=== PATIENT | male | born 1960 | race Caucasian/White ===

== ENCOUNTER 2019-09-20 13:26 | Emergency (ER) | payer OTHER ==
[~2019-09-20] VITALS: Ht 177.8 cm; Wt 77.1 kg
[~2019-09-20 13:26] MED LIST: ALBU90OI INH; BENZ100A PO; CRUTCH2 USE; LEVFLO500 PO; Norco 5-325 Ta1 EACH PO; OXYACE10 PO; Prednisone20 MG PO; RXOXYACE PO; SPACE CHAMBER1 EACH MC
[2019-09-20] MEDS ORDERED: IBUP800 PO (14:14)
== END 2019-09-20 14:28 | disposition home or self-care (01) ==
LOC: ER 13:26
DX: K40.90 Unilateral inguinal hernia, without obstruction or gangrene, not specified as recurrent (principal); F17.200 Nicotine dependence, unspecified, uncomplicated
CPT/HCPCS: 99283

== ENCOUNTER 2020-06-09 12:43 | Inpatient (IN) | payer OTHER ==
[~2020-06-09] VITALS: Ht 170.2 cm; Wt 69.5 kg
[~2020-06-09 12:43] MED LIST changes: +IBUP800 PO
[2020-06-09 13:39] LABS: BASOPHILS ABSOLUTE AUTO 0.11 K/mm3 (0.00-0.23); BASOPHILS PERCENT AUTO 1 % (0-2); EOSINOPHILS ABSOLUTE AUTO 0.25 K/mm3 (0.00-0.68); EOSINOPHILS PERCENT AUTO 3 % (0-6); Hematocrit 45.9 % (37.0-53.0); Hemoglobin 15.4 g/dL (13.5-17.5); IMMATURE GRAN ABSOLUTE AUTO 0.02 K/mm3 (0.00-0.10); IMMATURE GRAN PERCENT AUTO 0 % (0-1); LYMPHOCYTES ABSOLUTE AUTO 1.57 K/mm3 (0.84-5.20); LYMPHOCYTES PERCENT AUTO 20 % (21-46); MONOCYTES PERCENT AUTO 11 % (4-13); Mean Corpuscular HGB 30.5 pg (26.0-34.0); Mean Corpuscular HGB Conc 33.6 g/dL (31.5-36.5); Mean Corpuscular Volume 91 fL (80-100); Mean Platelet Volume 8.7 fL (9.1-12.4); NEUTROPHILS ABSOLUTE AUTO 5.09 K/mm3 (1.96-9.15); NEUTROPHILS PERCENT AUTO 64 % (41-73); Platelet Count 219 K/mm3 (150-400); RDW Coefficient Variation 12.4 % (11.7-14.2); Red Blood Cell Count 5.05 M/mm3 (4.30-5.90); White Blood Cell Count 7.94 K/mm3 (4.00-11.30)
[2020-06-09 13:51] LABS: Source, Urine Clean Catch
[2020-06-09] MEDS ORDERED: LATA.005SO BOTHEYES (13:51)
[2020-06-09] MEDS ORDERED: MOBIC15 MG PO (13:52)
[2020-06-09] MEDS ORDERED: BRIMONIDINE TART5 M2 BOTHEYES (13:59)
[2020-06-09 14:06] LABS: Alanine Aminotransfer (ALT/SGP 63 U/L (12-78); Albumin, Blood 3.1 g/dL (3.4-5.0); Albumin/Globulin Ratio 0.8 (0.8-1.8); Alk Phos 64 U/L (50-136); Anion Gap 4 mmol/L (6-16); Aspartate Aminotrans (AST/SGOT 55 U/L (12-37); Bilirubin, Total 0.2 mg/dL (0.1-1.0); Blood Urea Nitrogen 15 mg/dL (8-24); Bun/Creatinine Ratio 15.3 (12.0-20.0); CO2, Blood 27 mmol/L (21-32); Calcium, Blood 8.4 mg/dL (8.5-10.1); Chloride, Blood 107 mmol/L (98-108); Creatinine, Blood 0.98 mg/dL (0.60-1.20); Globulin, Blood 4.1 g/dL (2.2-4.0); Glomerular Filtration Rate >60 (60-); Glucose, Blood 116 mg/dL (70-99); Potassium, Blood 4.4 mmol/L (3.5-5.5); Sodium, Blood 138 mmol/L (136-145); Total Protein, Blood 7.2 g/dL (6.4-8.2)
[2020-06-09 14:28] LABS: Appearance, Urine Clear (Clear); Blood, Urine Neg (Neg); Color, Urine Yellow (P-Yellow); Glucose Qualitative, Urine Neg (Neg); Ketones, Urine 1+ (Neg); Leukocyte Esterase, Urine 1+ (Neg); Nitrite, Urine Neg (Neg); Protein, Urine 1+ (Neg); Specific Gravity, Urine 1.025 (1.003-1.022); Urobilinogen, Urine 2+ (Normal)
[2020-06-09 14:37] LABS: Influenza A, PCR Negative (NEGATIVE); Influenza B, PCR Negative (NEGATIVE); Resp Syncytial Virus, PCR Negative (NEGATIVE); SARS-Cov-2 (COVID-19) PCR, MMC Negative (NEGATIVE)
[2020-06-09 14:42] LABS: Bilirubin, Urine 1+ (Neg)
[2020-06-09 14:43] LABS: Mucus Mod (0-Heavy)
[2020-06-09 14:44] LABS: Bacteria Few /hpf; Red Blood Cells, Urine 0-2 /hpf (0-2); Squamous Epithelial Cells Not Seen /hpf (Few)
[2020-06-09 14:46] LABS: International Normalized Ratio 0.94; Prothrombin Time Results 10.1 Sec (9.7-11.5)
[2020-06-09 14:48] LABS: U Amphetamine Screen DETECTED; U Barbituate Screen Not Detected; U Benzodiazapine Screen Not Detected; U Buprenorphine Screen Not Detected; U Cannabinoids Screen Not Detected; U Cocaine Screen Not Detected; U Methadone Screen Not Detected; U Methamphetamine Screen DETECTED; U Opiates Screen Not Detected; U Oxycodone Screen Not Detected; U Phencyclidine Screen Not Detected; U Propoxyphene Screen Not Detected
--- NOTE | 2020-06-09 15:22 | NUR ---
Echocardiogram completed.
--- NOTE | 2020-06-09 15:38 | NUR ---
REPORT FROM NNEKA RN, PT HEADING TO HALF SECTION IRONER BEFORE COMING TO U
--- NOTE | 2020-06-09 19:30 | NUR ---
SUMMARY Assumed care of pt upon arrival to ICU 3 from label sewer and previously emergency department. Report received from PCU nurse, Fatimah, who was originally supposed to receive this patient prior to STEMI. Report also received from label sewer staff. On arrival, pt is A&O x 4. Answers questions. Follows commands. Verbalizes needs. Pleasant and cooperative with care. Pt on 4 LPM NC. Titrated down to 2 LPM NC. SpO2 90% or greater. SR per monitor. BP stable initially but trending upwards. Dr Arias notified of blood pressure. New orders received. Pt denies chest pain, but reports 1/10 severity heartburn. 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 Sites have TR bands in place. BUE pink/warm/dry, capillary refill less than 3 seconds, 2+ distal pulses, and no atypical numbness and tingling. Voiding urine into urinal. Report given to oncoming RN.
[2020-06-10 04:36] LABS: BASOPHILS ABSOLUTE AUTO 0.11 K/mm3 (0.00-0.23); BASOPHILS PERCENT AUTO 1 % (0-2); EOSINOPHILS ABSOLUTE AUTO 0.32 K/mm3 (0.00-0.68); EOSINOPHILS PERCENT AUTO 4 % (0-6); Hematocrit 42.5 % (37.0-53.0); Hemoglobin 14.3 g/dL (13.5-17.5); IMMATURE GRAN ABSOLUTE AUTO 0.05 K/mm3 (0.00-0.10); IMMATURE GRAN PERCENT AUTO 1 % (0-1); LYMPHOCYTES ABSOLUTE AUTO 1.67 K/mm3 (0.84-5.20); LYMPHOCYTES PERCENT AUTO 19 % (21-46); MONOCYTES ABSOLUTE AUTO 1.06 K/mm3 (0.16-1.47); MONOCYTES PERCENT AUTO 12 % (4-13); Mean Corpuscular HGB Conc 33.6 g/dL (31.5-36.5); Mean Corpuscular Volume 92 fL (80-100); Mean Platelet Volume 8.5 fL (9.1-12.4); NEUTROPHILS ABSOLUTE AUTO 5.38 K/mm3 (1.96-9.15); NEUTROPHILS PERCENT AUTO 63 % (41-73); Platelet Count 199 K/mm3 (150-400); RDW Coefficient Variation 12.5 % (11.7-14.2); Red Blood Cell Count 4.62 M/mm3 (4.30-5.90); White Blood Cell Count 8.59 K/mm3 (4.00-11.30)
[2020-06-10 05:09] LABS: Anion Gap 3 mmol/L (6-16); Blood Urea Nitrogen 18 mg/dL (8-24); Bun/Creatinine Ratio 20.2 (12.0-20.0); CHOL/HDL RATIO 2.5; CO2, Blood 26 mmol/L (21-32); Calcium, Blood 8.5 mg/dL (8.5-10.1); Chloride, Blood 110 mmol/L (98-108); Cholesterol 98 mg/dL (50-200); Creatinine, Blood 0.89 mg/dL (0.60-1.20); Glomerular Filtration Rate >60 (60-); Glucose, Blood 100 mg/dL (70-99); HDL Cholesterol 39 mg/dL (>39); LDL/HDL RATIO 1.1; Low Density Lipoprotein Chol 43 mg/dL (0-110); Potassium, Blood 4.5 mmol/L (3.5-5.5); Sodium, Blood 139 mmol/L (136-145); Triglycerides 79 mg/dL (30-160); Very Low Density Lipoprot Chol 15 mg/dL (6-32)
--- NOTE | 2020-06-10 06:11 | NUR ---
SHIFT SUMMARY. ASSUMED CARE AT 1899. MILD ORTIZ TYLENOL W/ GOOD RELIEF. TR BANDS BILAT MAINTAINED AND REVIEWED W/ DAY RN. 2113 RELEASED 3ML AIR BOTH SITES. WNL. SEE PI FOR CATH SITE MANAGEMENT. VERY CALM AND COOPERATIVE ALL NOC .NO RESTLESS BEHAVIOR AND AWARE OF RESTRIVTIVE USE OF HANDS/ ARMS. ASSISTED W/ URINAL. ARM BOARDS ON AT ALL TIMES. TOOK OFF RT ARM BOARD ONCE BEFORE ANY AIR TAKEN OUT PER PT HE REPORTS UNCOMFORTABLE AND TOO TIGHT. INSTSRUCTIONS GIVEN. NO CIRC IMPAIRMENT NOTED. AIR REMOVED COMPLETELY BY 29. TR BAND LEFT ON UNTIL 229 THEN BOTH REMOVED. SITES WNL SOFT NO BLEED NO HEMATOMA, OCCLUSIVE DSG PLACED. THEN NOT CHECKED AGAIN UNTIL 344, PT HAD BEEN SLEEPING AND NO RESTLESS OR MOVING ABOUT W/ ARMS. NOTED POOLING BLOOD BENEATH RT RADIAL OCCLUSIVE DSG. . HELD [place] PRESSURE FOR 30 MIN. SITE WNL. BOTH WRISTS W/ SLIGHT FAINT BRUISE. DENIES PAIN AT SITES. SR ALL NOC. REPORTS MID STERNAL CHEST ACHE , BELOW LT NIPPLE. 2-09/01. COMES AND GOES REPORTED.TYLENOL GIVEN AND RELIEVED OFF TO SLEEP AND NO FRUTHER COMPLAINT.TYLENOL WAS GIVE AT 010.SLEEPING WELL ALL NOC. ELEVATED TROPONINS NOT CALLED TO DR LAST.
[2020-06-10 07:16] LABS: Alanine Aminotransfer (ALT/SGP 58 U/L (12-78); Aspartate Aminotrans (AST/SGOT 59 U/L (12-37)
--- NOTE | 2020-06-10 07:17 | NUR ---
ASSUMED CARE: PT RESTING IN BED AT THIS TIME. BILATERAL WRIST SITES WITH RIGHT HAVING A BUMP BENEATH INSERTION SITE, 1CM IN DIAMETER. DR LAST AT BEDSIDE THIS AM AND AWARE OF REBLEED AND THAT PRESSURE WAS HELD. WILL EVALUATE FOR POSSIBILITY OF DC HOME DUE TO VARYING FACTORS. REPEAT TROP TO BE DRAWN AT 9AM. ST ELEVATION NOTED ON TELE. NO FURTHER NEEDS AT THIS TIME.
--- NOTE | 2020-06-10 10:06 | NUR ---
TAP OUT OPERATOR CAME IN TO SEE PT AND IS AWARE THAT PT NEEDS RESOURCES AND EDUCATION FOR MEDICATIONS AND FOLLOW [employer] SO THAT HE HAS THE BEST CHANCES FOR SUCCESS AT [place].
--- NOTE | 2020-06-10 10:22 | NUR ---
DC PLANNING STATED THAT PT TOLD HER THAT HE THOUGHT THE METH HELPED HIS PR OUTCOME RATHER THAN HURT. DR LAST AWARE AND STATES SHE HAS BEEN EDUCATING PT ON TOPIC. STATES THAT SHE IS LEANING TOWARD KEEPING PT AT LEAST OVERNIGHT. NATURAL RESOURCES SPECIALIST AWARE
[2020-06-10 10:23] LABS: Source, Urine Clean Catch
[2020-06-10 10:44] LABS: Bilirubin, Urine Neg (Neg); Blood, Urine Neg (Neg); Glucose Qualitative, Urine Neg (Neg); Ketones, Urine Neg (Neg); Leukocyte Esterase, Urine Neg (Neg); Nitrite, Urine Neg (Neg); Protein, Urine Neg (Neg); Urobilinogen, Urine NORM (Normal); pH, Urine 6.5 (5.0-8.0)
[2020-06-10 11:00] LABS: Appearance, Urine Clear (Clear); Color, Urine Yellow (P-Yellow)
--- NOTE | 2020-06-10 13:49 | NUR ---
PT AMBULATED 60 FEET WITH NO COMPLAINT OF CHEST PAIN OR DIZZINESS. DR PARISH TO SEE PT SHORTLY
[2020-06-10] MEDS ORDERED: ASPI81CH PO (14:51)
[2020-06-10] MEDS ORDERED: ATOR20 PO (14:51)
[2020-06-10] MEDS ORDERED: METO25ER PO (14:52)
[2020-06-10] MEDS ORDERED: CLOP75 PO (14:52)
[2020-06-10] MEDS ORDERED: NICO21TP TOP (14:52)
[2020-06-10] MEDS ORDERED: Lisinopril2.5 MG PO (14:52)
--- NOTE | 2020-06-10 15:32 | NUR ---
DISCHARGE: PT'S IVS DC'D WNL. DIETARY CAME TO SEE PT PRIOR TO DC AND INSTRUCTED ON . PT HAS BEEN INSTRUCTED TO AVOID DRUGS AND SMOKING. PT INSTRUCTED ON FOLLOW UP APPOINTMENTS AND TO MONITOR BP WITH MEDICATIONS. DENIED NEED OR CONCERNS. ESCORTED OUT VIA WHEEL CHAIR
--- NOTE | 2020-06-10 16:23 | NUR ---
Spiritual care note: Ethan appears to suffer from chronic dissapointment. He told me about all the hardships he has faced in the past years. He did not appear to be able to fathom anything ever getting better for him. He did not want to seek help from any federal or state agencies because "I don't want to be in the system." He was not interested in 12-step support groups b/c "they don't work for me." He does not have spiritual beliefs. I attempted to lift his spirits with theraputic listeing and gentle staff counselor. I was unsuccessful. He is being d/c this afternoon.
== END 2020-06-10 15:23 | disposition home or self-care (01) | DRG 247 ==
LOC: ER 12:43 → ICUW 15:38 → ER 15:39 → PCU 15:59 → ICUW 17:22 → ICUE 18:15
PROVIDERS: Emergency Medicine; Pharmacist; ADMIT Internal Medicine Cardiovascular Disease
PROC: 027036Z Dilation of Coronary Artery, One Artery with Three Drug-eluting Intraluminal Devices, Percutaneous Approach (ICD-10-PCS; principal; 2020-06-09)
PROC: B2111ZZ Fluoroscopy of Multiple Coronary Arteries using Low Osmolar Contrast (ICD-10-PCS; 2020-06-09)
PROC: 3E02340 Introduction of Influenza Vaccine into Muscle, Percutaneous Approach (ICD-10-PCS; 2020-06-09)
DX: I21.4 Non-ST elevation (NSTEMI) myocardial infarction (principal); F17.210 Nicotine dependence, cigarettes, uncomplicated; Z66 Do not resuscitate; Z20.828 Contact with and (suspected) exposure to other viral communicable diseases; I25.5 Ischemic cardiomyopathy; I10 Essential (primary) hypertension; F15.10 Other stimulant abuse, uncomplicated; I25.10 Atherosclerotic heart disease of native coronary artery without angina pectoris; Z23 Encounter for immunization
CPT/HCPCS: 0241U; 36415; 71045; 76937; 80048; 80053; 80061; 81001; 81003; 83880; 84450; 84460; 84484; 85025; 85347; 85610; 85730; 87086; 92978; 93005; 93010; 93306; 93454; 96374; 96376; 99152; 99153; 99285-25; A9270; A9270-GY; C1725; C1753; C1769; C1874; C1887; C1894; C9600; G0008; J1644; J2250; J3010; J3246; J7030; J7050; Q2038; Q9967